=== PATIENT | male | born 1955 | race African-American/Black ===

== ENCOUNTER 2016-06-28 19:04 | Emergency (ER) | payer OTHER ==
--- NOTE | 2016-06-28 20:07 | RAD ---
LEFT HAND THREE VIEWS: History: Left hand pain. States a chain slipped and hit his hand while working on a car at noon to day. Comparison: None. FINDINGS: There is a linear radiopacity in the dorsal soft tissues of the hand projecting over the fourth meta carpal base measuring 7 mm in length with less than 1 mm in width. No underlying fracture is apprec iated. Interphalangeal degenerative disease of the digits. IMPRESSION: 7 mm in length by less than 1 mm in width linear radiopaque foreign object in the dorsal aspect of t he soft tissues of the hand at the level of the fourth metacarpal base. POS: [facility]
== END 2016-06-28 19:37 | disposition home or self-care (01) ==
LOC: NAV ERS 19:04
DX: S67.22XA Crushing injury of left hand, initial encounter (principal); E11.9 Type 2 diabetes mellitus without complications; I10 Essential (primary) hypertension; E66.9 Obesity, unspecified; I25.2 Old myocardial infarction; Z86.73 Personal history of transient ischemic attack (TIA), and cerebral infarction without residual deficits; Z79.899 Other long term (current) drug therapy; W23.0XXA Caught, crushed, jammed, or pinched between moving objects, initial encounter

== ENCOUNTER 2016-11-17 11:35 | Outpatient (CLI) | payer OTHER ==
--- NOTE | 2016-11-17 12:22 | RAD ---
LUMBAR SPINE THREE VIEWS: History: Low back pain. FINDINGS: Degenerative changes are seen in the lumbar spine. No fracture, subluxation, or bony destruction is identified. IMPRESSION: Lumbar spondylosis. POS: [facility]
--- NOTE | 2016-11-17 12:59 | RAD ---
CERVICAL SPINE 4 VIEWS: HISTORY: Neck pain. FINDINGS: There are degenerative changes in the lower cervical spine. There is loss of cervical lordosis with straightening of the cervical spine. No fracture, subluxation, or bony destruction is identified. IMPRESSION: Cervical spondylosis. POS: [facility]
== END 2016-11-17 11:36 | disposition home or self-care (01) ==
LOC: NAV RAD 11:35
DX: M54.2 Cervicalgia (principal); M54.5 Low back pain; M47.812 Spondylosis without myelopathy or radiculopathy, cervical region; M47.816 Spondylosis without myelopathy or radiculopathy, lumbar region
CPT/HCPCS: 72040; 72100

== ENCOUNTER 2019-07-09 10:33 | Outpatient (CLI) | payer OTHER ==
--- NOTE | 2019-07-09 12:05 | RAD ---
RIGHT SHOULDER 3 VIEWS: Date: 07/09/2019 HISTORY: Shoulder pain. FINDINGS: There are mild degenerative changes at the glenohumeral joint. Degenerative changes at the AC joint. No fracture or dislocation. No acute abnormality. IMPRESSION: Mild degenerative changes. POS: [facility]
== END 2019-07-09 10:34 | disposition home or self-care (01) ==
LOC: NAV RAD 10:33
PROVIDERS: ATTEND Registered Nurse Pain Management
DX: M25.511 Pain in right shoulder (principal); M19.011 Primary osteoarthritis, right shoulder

== ENCOUNTER 2019-10-02 09:19 | Emergency (ER) | payer OTHER ==
--- NOTE | 2019-10-02 10:03 | RAD ---
XR Knee Lt 4 View STANDARD HISTORY: Left knee pain FINDINGS: No fracture or dislocation is identified. Patellar osteophytes are seen.
== END 2019-10-02 10:55 | disposition home or self-care (01) ==
LOC: NAV ERS 09:19
DX: M10.9 Gout, unspecified (principal); E11.9 Type 2 diabetes mellitus without complications; I10 Essential (primary) hypertension; I25.2 Old myocardial infarction; J45.909 Unspecified asthma, uncomplicated; E66.9 Obesity, unspecified; Z86.73 Personal history of transient ischemic attack (TIA), and cerebral infarction without residual deficits

== ENCOUNTER 2019-10-02 10:49 | Outpatient (CLI) | payer OTHER ==
--- NOTE | 2019-10-02 11:15 | RAD ---
EXAM: 3 views of the right shoulder HISTORY: Shoulder pain COMPARISON: 07/09/2019 FINDINGS: There is no evidence of acute fracture or dislocation. No degenerative changes are present. No soft tissue swelling is seen. The visualized thorax is unremarkable. IMPRESSION: No evidence of acute osseous abnormality.
== END 2019-10-02 10:50 | disposition home or self-care (01) ==
LOC: NAV RAD 10:49
DX: M25.511 Pain in right shoulder (principal)

== ENCOUNTER 2021-03-02 14:44 | Observation (INO) | payer MEDICARE, MEDICAID ==
[2021-03-02 15:14] LABS: #Basophils 0.1 thou/uL (0.0-0.2); #Eosinphils 0.6 thou/uL (0.0-0.7); #Lymphocytes 3.3 thou/uL (1.20-3.40); #Monocytes 1.1 thou/uL (0.11-0.59); #Neutrophils 9.1 thou/uL (1.40-6.50); %Basophils 0.6 % (0.0-1.0); %Eosinophils 3.9 % (0.0-10.0); %Lymphocytes 23.5 % (21.0-51.0); %Monocytes 7.8 % (0.0-10.0); %Neutrophils 64.2 % (42.0-75.0); Hemoglobin 11.6 g/dL (14.0-18.0); Mean Corpuscular HGB CONC 33.1 g/dL (32.0-36.0); Mean Corpuscular Hemoglobin 28.4 pg (27.0-31.0); Mean Corpuscular Volume 85.6 fL (78.0-98.0); Mean Platelet Volume 6.9 fL (7.4-10.4); Platelet Count 437 thou/uL (130-400); RBC Distribution Width 12.6 % (11.5-14.5); Red Blood Cell (RBC) Count 4.09 mill/uL (4.70-6.10); White Blood Cell (WBC) Count 14.1 thou/uL (4.8-10.8)
[2021-03-02 15:33] LABS: ALT (SGPT) 15 U/L (8-55); AST (SGOT) 23 U/L (5-34); Albumin 3.4 g/dL (3.4-4.8); Alkaline Phosphatase 84 U/L (40-110); Anion Gap 13 mmol/L (10-20); BUN (Urea Nitrogen) 11 mg/dL (8.4-25.7); Bilirubin, Total 0.5 mg/dL (0.2-1.2); Calc. Creatinine Clearance 0 mL/min (70-130); Calcium 9.1 mg/dL (7.8-10.44); Carbon Dioxide 32 mmol/L (23-31); Chloride 97 mmol/L (98-107); Globulin 4.2 g/dL (2.4-3.5); Glucose 98 mg/dL (80-115); Protein, Total 7.6 g/dL (5.8-8.1); Sodium 139 mmol/L (136-145)
[2021-03-02 15:41] LABS: Potassium 2.6 mmol/L (3.5-5.1)
[2021-03-02] MEDS ORDERED: Potassium Chloride 10 MEQ/100 ML PREMIX BAG ONE (16:08)
[2021-03-02] MEDS ORDERED: Potassium Chloride 20 MEQ TAB ONE (16:08)
[2021-03-02 17:28] LABS: Magnesium 1.5 mg/dL (1.6-2.6)
[2021-03-02 18:12] LABS: SARS-CoV-2 NAA Rapid Test Not Detected (NotDetected)
[2021-03-02 18:55] VITALS: BMI 42.0
[2021-03-02] MEDS ORDERED: Albuterol Sulfate 2.5 mg/3 ml Neb NEB PRN (20:34)
[2021-03-02] MEDS ORDERED: Dextrose 5% in Water 1,000 ML IV PRN (20:45)
[2021-03-02] MEDS ORDERED: HumaLOG 300 UNITS/3 ML VIAL SC PRN ×2 (20:45)
[2021-03-02] MEDS ORDERED: Dextrose 50% Abboject 50 ML SYRINGE IVP PRN (20:45)
[2021-03-02] MEDS ORDERED: Lantus 1000 UNITS/10 ML VIAL SC SCH (21:00)
[2021-03-02] MEDS: Potassium Chloride 20 MEQ TAB PO SCH (21:05)
[2021-03-03] MEDS: Potassium Chloride 20 MEQ TAB PO SCH (06:01)
[2021-03-03 06:21] LABS: #Basophils 0.1 thou/uL (0.0-0.2); #Eosinphils 0.6 thou/uL (0.0-0.7); #Lymphocytes 2.6 thou/uL (1.20-3.40); #Neutrophils 7.5 thou/uL (1.40-6.50); %Basophils 0.5 % (0.0-1.0); %Lymphocytes 22.1 % (21.0-51.0); %Monocytes 8.2 % (0.0-10.0); %Neutrophils 64.1 % (42.0-75.0); Hemoglobin 11.3 g/dL (14.0-18.0); Mean Corpuscular HGB CONC 31.8 g/dL (32.0-36.0); Mean Corpuscular Hemoglobin 27.4 pg (27.0-31.0); Mean Corpuscular Volume 86.1 fL (78.0-98.0); Mean Platelet Volume 6.4 fL (7.4-10.4); Platelet Count 422 thou/uL (130-400); Red Blood Cell (RBC) Count 4.13 mill/uL (4.70-6.10); White Blood Cell (WBC) Count 11.6 thou/uL (4.8-10.8)
[2021-03-03 06:37] LABS: ALT (SGPT) 15 U/L (8-55); AST (SGOT) 21 U/L (5-34); Albumin 3.3 g/dL (3.4-4.8); Alkaline Phosphatase 95 U/L (40-110); Anion Gap 9 mmol/L (10-20); BUN (Urea Nitrogen) 11 mg/dL (8.4-25.7); Bilirubin, Total 0.3 mg/dL (0.2-1.2); Calc. Creatinine Clearance 151 mL/min (70-130); Calcium 9.3 mg/dL (7.8-10.44); Carbon Dioxide 33 mmol/L (23-31); Chloride 99 mmol/L (98-107); Glucose 121 mg/dL (80-115); Magnesium 1.5 mg/dL (1.6-2.6); Protein, Total 7.3 g/dL (5.8-8.1); Sodium 138 mmol/L (136-145)
[2021-03-03 06:50] LABS: Potassium 2.8 mmol/L (3.5-5.1)
[2021-03-03 07:38] VITALS: BP 134/74; TEMP 98
[2021-03-03] MEDS ORDERED: Magnesium 2 GM/50 ML 2 GM in Premix Bag 1 BAG IVPB SCH (09:00)
[2021-03-03] MEDS ORDERED: Magnesium Oxide 400 MG TAB PO SCH (09:00)
== END 2021-03-03 09:08 | disposition home or self-care (01) ==
LOC: NAV ERS 14:44 → NAV ACUTE 18:35
PROVIDERS: ADMIT Family Medicine; ATTEND Family Medicine
DX: E87.6 Hypokalemia (principal); J06.9 Acute upper respiratory infection, unspecified; E11.9 Type 2 diabetes mellitus without complications; I10 Essential (primary) hypertension; I25.2 Old myocardial infarction; J45.909 Unspecified asthma, uncomplicated; G89.29 Other chronic pain; M54.9 Dorsalgia, unspecified; E66.9 Obesity, unspecified; Z68.41 Body mass index [BMI] 40.0-44.9, adult; Z53.29 Procedure and treatment not carried out because of patient's decision for other reasons; Z86.73 Personal history of transient ischemic attack (TIA), and cerebral infarction without residual deficits; Z88.0 Allergy status to penicillin; Z88.2 Allergy status to sulfonamides; Z88.3 Allergy status to other anti-infective agents; Z88.6 Allergy status to analgesic agent; Z20.822 Contact with and (suspected) exposure to COVID-19
CPT/HCPCS: 36415; 36416; 71045; 80053; 83735; 83880; 84484; 85025; 93005; G0378; J3480; J7611; J7620; U0002